=== PATIENT | male | born 1945 | race Caucasian/White ===

== ENCOUNTER 2018-09-11 10:09 | Observation (INO) | payer OTHER ==
[2018-09-11 11:04] LABS: ADD MAN DIFF? NO
[2018-09-11 11:05] LABS: WHITE BLOOD COUNT 8.9 10^3/ul (4.8-10.8)
[2018-09-11 11:05] LABS: BASOPHIL # 0.1 10^3/ul (0.0-0.1); BASOPHILS % 0.7 % (0.0-2.0); EOSINOPHILS # 0.1 10^3/ul (0.0-0.5); EOSINOPHILS % 1.4 % (0.0-7.0); HEMATOCRIT 38.2 % (42.0-52.0); HEMOGLOBIN 12.9 g/dl (14.0-18.0); LYMPHOCYTES # 1.8 10^3/ul (0.8-2.9); LYMPHOCYTES % 20.2 % (15.0-51.0); MEAN CORPUSCULAR HEMOGLOBIN 28.7 pg (29.0-33.0); MEAN CORPUSCULAR HGB CONC 33.8 g/dl (32.0-37.0); MEAN CORPUSCULAR VOLUME 84.9 fl (82.0-101.0); MEAN PLATELET VOLUME 8.9 fl (7.4-10.4); MONOCYTE # 0.6 10^3/ul (0.3-0.9); MONOCYTES % 6.9 % (0.0-11.0); NEUTROPHIL # 6.3 10^3/ul (1.6-7.5); NEUTROPHILS % 70.5 % (39.0-77.0); PLATELET COUNT 230 10^3/UL (140-415); RED CELL DISTRIBUTION WIDTH 13.2 % (11.5-14.5)
[2018-09-11 11:26] LABS: ANION GAP 10 (5-13); BLOOD UREA NITROGEN 25 mg/dl (7-20); CALCIUM 9.7 mg/dl (8.4-10.2); CARBON DIOXIDE 23 mmol/L (21-31); CHLORIDE 105 mmol/L (97-110); CREATININE 0.86 mg/dl (0.61-1.24); GLUCOSE 286 mg/dl (70-220); POTASSIUM 4.3 mmol/L (3.5-5.1); SODIUM 138 mmol/L (135-144)
[2018-09-11] MEDS: MECLIZINE 12.5 MG TAB PO (11:30)
[2018-09-11 11:37] LABS: TROPONIN-I < 0.012 ng/ml (0.000-0.120)
[2018-09-11 12:05] LABS: URINE BLOOD (Dip) POC Trace-lysed (NEGATIVE); URINE KETONES (Dip) POC Negative (NEGATIVE); URINE LEUKOCYTE EST (Dip) POC Negative (NEGATIVE); URINE NITRITE (Dip) POC Negative (NEGATIVE); URINE TOTAL PROTEIN POC Negative (NEGATIVE)
[2018-09-11 12:16] LABS: ADD UMIC YES; UR ASCORBIC ACID NEGATIVE (NEGATIVE); UR BACTERIA FEW /HPF (NONE SEEN); UR BILIRUBIN (Dip) NEGATIVE (NEGATIVE); UR BLOOD (Dip) 1+ mg/dL (NEGATIVE); UR CLARITY CLEAR (CLEAR); UR COLOR YELLOW (YELLOW); UR GLUCOSE (Dip) 2+ mg/dL (NEGATIVE); UR KETONES (Dip) NEGATIVE (NEGATIVE); UR LEUKOCYTE ESTERASE (Dip) NEGATIVE Leu/ul (NEGATIVE); UR MUCUS FEW /HPF (NONE SEEN); UR NITRITE (Dip) NEGATIVE (NEGATIVE); UR RBC 2 /HPF (0-5); UR SPECIFIC GRAVITY (Dip) 1.016 (1.003-1.030); UR TOTAL PROTEIN (Dip) NEGATIVE (NEGATIVE); UR UROBILINOGEN (Dip) NEGATIVE (NEGATIVE); UR WBC 0 /HPF (0-5)
[2018-09-11] MEDS ORDERED: ACETAMINOPHEN 325 MG TAB PO (13:00)
[2018-09-11] MEDS ORDERED: ONDANSETRON 4 MG INJ IV (13:00)
[2018-09-11] MEDS ORDERED: GLUCOSE GEL 15 GRAM TUBE PO ×2 (14:30)
[2018-09-11] MEDS ORDERED: NACL 0.9% 3 ML SYG IV (14:30)
[2018-09-11] MEDS ORDERED: GLUCOSE GEL 15 GRAM TUBE BUCCAL (14:30)
[2018-09-11] MEDS ORDERED: GLUCAGON 1 MG INJ IM (14:30)
[2018-09-11] MEDS ORDERED: DEXTROSE 50% 50 ML SYRINGE IV ×2 (14:30)
[2018-09-11] MEDS ORDERED: HYDROCODONE/APAP (5/325) TAB PO (14:30)
[2018-09-11] MEDS: ACCU-CHEK XX ×2 (17:18→21:00)
[2018-09-11] MEDS: INSULIN ASPART [NOVOLOG] 3 ML PEN SC ×3 (17:19→20:32)
[2018-09-11 17:24] LABS: CREATINE KINASE 32 IU/L (23-200)
[2018-09-11] MEDS ORDERED: glipiZIDE 10 MG TAB PO (17:25)
[2018-09-11 17:37] LABS: CK INDEX 0.8; CK-MB 0.26 ng/ml (0.0-2.4); TROPONIN-I < 0.012 ng/ml (0.000-0.120)
[2018-09-11] MEDS ORDERED: metFORMIN 500 MG TAB PO (17:55)
[2018-09-11] MEDS: ACARBOSE 50 MG TAB PO (17:58)
[2018-09-11] MEDS: GABAPENTIN 300 MG CAP PO (20:29)
[2018-09-11] MEDS: DOXAZOSIN 2 MG TAB PO (20:29)
[2018-09-11] MEDS: INSULIN GLARGINE [LANTus] (100 UNITS/ML) SYG SC (22:24)
[2018-09-11 23:42] LABS: CREATINE KINASE 24 IU/L (23-200)
[2018-09-11 23:51] LABS: CK-MB 0.24 ng/ml (0.0-2.4)
[2018-09-11 23:55] LABS: TROPONIN-I < 0.012 ng/ml (0.000-0.120)
[2018-09-12 06:31] LABS: ADD MAN DIFF? NO
[2018-09-12 06:33] LABS: BASOPHIL # 0.1 10^3/ul (0.0-0.1); BASOPHILS % 0.8 % (0.0-2.0); EOSINOPHILS # 0.1 10^3/ul (0.0-0.5); EOSINOPHILS % 1.8 % (0.0-7.0); HEMATOCRIT 37.5 % (42.0-52.0); HEMOGLOBIN 12.7 g/dl (14.0-18.0); LYMPHOCYTES # 2.1 10^3/ul (0.8-2.9); MEAN CORPUSCULAR HEMOGLOBIN 28.9 pg (29.0-33.0); MEAN CORPUSCULAR HGB CONC 33.9 g/dl (32.0-37.0); MEAN CORPUSCULAR VOLUME 85.2 fl (82.0-101.0); MONOCYTE # 0.7 10^3/ul (0.3-0.9); MONOCYTES % 8.8 % (0.0-11.0); NEUTROPHILS % 62.3 % (39.0-77.0); PLATELET COUNT 232 10^3/UL (140-415); RED CELL DISTRIBUTION WIDTH 13.2 % (11.5-14.5)
[2018-09-12 06:58] LABS: HEMOGLOBIN A1C 8.1 % (0-5.9)
[2018-09-12 07:05] LABS: ALANINE AMINOTRANSFERASE 19 IU/L (13-69); ALBUMIN/GLOBULIN RATIO 1.73; ALKALINE PHOSPHATASE 51 IU/L (42-121); ANION GAP 8 (5-13); ASPARTATE AMINO TRANSFERASE 15 IU/L (15-46); BILIRUBIN,INDIRECT 0.3 mg/dl (0-1.1); BILIRUBIN,TOTAL 0.3 mg/dl (0.2-1.3); BLOOD UREA NITROGEN 21 mg/dl (7-20); CARBON DIOXIDE 26 mmol/L (21-31); CHLORIDE 105 mmol/L (97-110); CREATININE 0.89 mg/dl (0.61-1.24); GLUCOSE 130 mg/dl (70-220); POTASSIUM 3.9 mmol/L (3.5-5.1); SODIUM 139 mmol/L (135-144); TOTAL PROTEIN 6.3 g/dl (6.1-8.1)
[2018-09-12] MEDS: ACCU-CHEK XX ×2 (07:37→11:20)
[2018-09-12] MEDS: ACARBOSE 50 MG TAB PO (07:39)
[2018-09-12] MEDS: INSULIN ASPART [NOVOLOG] 3 ML PEN SC ×4 (07:40→11:26)
[2018-09-12] MEDS: ASPIRIN (EC) 81 MG TAB PO (08:28)
== END 2018-09-12 15:29 | disposition home or self-care (01) ==
LOC: E/R 10:09 → TEL 12:39
DX: R42 Dizziness and giddiness (principal); I10 Essential (primary) hypertension; E78.5 Hyperlipidemia, unspecified; E11.9 Type 2 diabetes mellitus without complications; E66.9 Obesity, unspecified; Z68.33 Body mass index [BMI] 33.0-33.9, adult; Z79.82 Long term (current) use of aspirin; Z79.84 Long term (current) use of oral hypoglycemic drugs; M19.90 Unspecified osteoarthritis, unspecified site
CPT/HCPCS: 36415; 70450; 70544; 70551; 71045; 80048; 80053; 81001; 81003; 82550; 82553; 82962; 83036; 84484; 85025; 93005; 97161; 99285-25; G0378

== ENCOUNTER 2019-06-05 11:14 | Emergency (ER) | payer OTHER ==
[2019-06-05] MEDS: DIAZEPAM 5 MG TAB PO (12:36)
[2019-06-05] MEDS: KETOROLAC 60 MG INJ IM (12:36)
== END 2019-06-05 13:29 | disposition home or self-care (01) ==
LOC: FTE 11:14
DX: M43.6 Torticollis (principal); Z79.82 Long term (current) use of aspirin; Z79.84 Long term (current) use of oral hypoglycemic drugs; Z85.46 Personal history of malignant neoplasm of prostate
CPT/HCPCS: 96372; 99284-25; J1885